=== PATIENT | male | born 1955 | race Caucasian/White ===

== ENCOUNTER → 2019-02-08 | Outpatient (CLI) | payer MEDICARE, OTHER ==
[2019-02-08 17:44] LABS: BILIRUBIN,TOTAL 0.8 mg/dL (0.0-1.0); CALCIUM 9.3 mg/dL (8.4-10.2); CHOLESTEROL RISK RATIO 3.8; CREATININE, serum 0.87 (0.66-1.25); POTASSIUM 5.2 mmol/L (3.4-5.0); TOTAL PROTEIN 6.5 gm/dL (6.4-8.2)
[2019-02-08 18:15] LABS: THYROID STIMULATING HORMONE 2.51 uIU/mL (0.465-4.680)
== END ==
LOC: ZCOL.LAB 16:35
PROVIDERS: Family Medicine
DX: Z13.1 Encounter for screening for diabetes mellitus (principal); Z13.6 Encounter for screening for cardiovascular disorders; E03.9 Hypothyroidism, unspecified

== ENCOUNTER → 2019-02-10 | Outpatient (CLI) | payer MEDICARE, OTHER | LOC: ZCOL.LAB 10:39 | DX: Z12.5 Encounter for screening for malignant neoplasm of prostate (principal); E87.5 Hyperkalemia ==

== ENCOUNTER → 2019-02-23 | Outpatient (CLI) | payer MEDICARE, OTHER | LOC: ZCOL.LAB 16:16 | DX: E87.5 Hyperkalemia (principal) ==